=== PATIENT | female | born 2000 | race Two or more races ===

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

== ENCOUNTER 2019-07-20 17:11 | Emergency (ER) | payer MEDICAID ==
[~2019-07-20] VITALS: Ht 165.1 cm; Wt 85.5 kg
[~2019-07-20 17:11] MED LIST: PNV11TAB5 PO
[2019-07-20 17:56] VITALS: BP 134/86
--- NOTE | 2019-07-20 18:24 | NUR ---
LOGISTIC MANAGER: PT TO ROOM FROM LOBBY
--- NOTE | 2019-07-20 18:48 | NUR ---
MEDS ADMIN PER APR. RIGHT FOOT ELEVATED AND ICE APPLIED.
[2019-07-20] MEDS ORDERED: IBUPROFEN 600 MG TABLET PO ONE (19:00)
--- NOTE | 2019-07-20 19:56 | NUR ---
ALL RESULTS ARE BACK AT THIS TIME. CHART UP FOR RECHECK.
--- NOTE | 2019-07-20 20:09 | NUR ---
FOOT JOSHUA WRAPPED BY JODI EXPLAINED.
== END 2019-07-20 20:11 | disposition home or self-care (01) ==
LOC: ED 20:00
DX: S93.491A Sprain of other ligament of right ankle, initial encounter (principal); X50.0XXA Overexertion from strenuous movement or load, initial encounter; Y93.89 Activity, other specified; Y92.009 Unspecified place in unspecified non-institutional (private) residence as the place of occurrence of the external cause; Y99.8 Other external cause status
CPT/HCPCS: 99283